=== PATIENT | male | born 1965 | race Caucasian/White ===

== ENCOUNTER 2022-02-22 13:49 | Inpatient (IN) | payer SELFPAY ==
[~2022-02-22 13:49] MED LIST: Iopamidol 370 76% 100 ML VIAL ONE
[2022-02-22] MEDS ORDERED: Pantoprazole 40 MG VIAL ONE ×3 (14:32→20:05)
[2022-02-22 14:43] LABS: #Basophils 0.1 10x3/uL (0.0-0.2); #Monocytes 1.3 10x3/uL (0.0-1.1); #Neutrophils 7.6 10x3/uL (1.5-8.4); %Basophils 1.3 % (0.0-2.0); %Eosinophils 0.3 % (0.0-6.0); %Lymphocytes 12.7 % (18.0-47.0); %Monocytes 12.7 % (0.0-10.0); %Neutrophils 72.3 % (40.0-75.0); Hemoglobin 6.4 g/dL (13.5-17.5); Mean Corpuscular HGB CONC 34.2 g/dL (32.0-36.0); Mean Corpuscular Hemoglobin 36.8 pg (27.0-33.0); Mean Corpuscular Volume 107.5 fl (81.2-95.1); Mean Platelet Volume 10.8 fl (7.4-10.4); Platelet Count 186 10x3/uL (150-450); RBC Distribution Width 12.3 % (11.5-14.5); Red Blood Cell (RBC) Count 1.74 10x6/uL (4.32-5.72); White Blood Cell (WBC) Count 10.5 10x3/uL (3.5-10.5)
[2022-02-22 14:47] LABS: INR-International Normal Ratio 1.4; Prothrombin Time 14.8 sec (9.5-12.1)
[2022-02-22 14:51] LABS: ALT (SGPT) 18 U/L (8-55); AST (SGOT) 37 U/L (5-34); Albumin 2.7 g/dL (3.5-5.0); Alkaline Phosphatase 81 U/L (40-110); Anion Gap 13 mmol/L (10-20); BUN (Urea Nitrogen) 59 mg/dL (8.4-25.7); Calc. Creatinine Clearance 0 mL/min (70-130); Calcium 7.9 mg/dL (7.8-10.44); Carbon Dioxide 21 mmol/L (22-29); Chloride 108 mmol/L (98-107); Estimated GFR 94; Globulin 2.8 g/dL (2.4-3.5); Glucose 163 mg/dL (70-105); Potassium 3.9 mmol/L (3.5-5.1); Protein, Total 5.5 g/dL (6.0-8.3); Sodium 138 mmol/L (136-145)
[2022-02-22 15:15] LABS: CKMB 2.3 ng/mL (0-6.6)
[2022-02-22 16:44] LABS: Macrocytosis SLIGHT = 6-15 cells (100X) (0-5/hpf)
[2022-02-22 16:45] LABS: Platelet Morphology Comment Appears Adequate
[2022-02-22] MEDS ORDERED: Ondansetron PF 4 MG/2 ML Vial ONE (18:51)
[2022-02-22] MEDS ORDERED: Ondansetron PF 4 MG/2 ML Vial IVP PRN (19:15)
[2022-02-22] MEDS ORDERED: Promethazine HCl 12.5 MG, Admixture Fee 1 EACH in Sodium Chloride 0.9% 50 ML IVPB PRN (19:19)
[2022-02-22] MEDS ORDERED: Octreotide Acetate 100 MCG/ML VIAL ONE (19:25)
[2022-02-22] MEDS ORDERED: cefTRIAXone\\ROCEPHIN 1 GM VIAL ONE (19:48)
[2022-02-22] MEDS ORDERED: PROPOFOL 20 ML ONE (20:28)
[2022-02-22] MEDS ORDERED: Succinylcholine 200 MG/10 ml SYRINGE FS ONE (20:28)
[2022-02-22] MEDS ORDERED: Fentanyl 100 MCG/2 ML VIAL ONE (20:29)
[2022-02-22] MEDS ORDERED: Octreotide Acetate 1,250 MCG in Sodium Chloride 0.9% 250 ML 250 ML IVPB SCH (20:30)
[2022-02-22] MEDS ORDERED: PHENYLEPHRINE-NS 100 MCG/ML 10 ML SYRINGE ONE (20:32)
[2022-02-22 20:47] LABS: SARS-CoV-2 NAA Rapid Test Not Detected (NotDetected)
[2022-02-22 22:26] LABS: #Basophils 0.1 10x3/uL (0.0-0.2); #Monocytes 1.1 10x3/uL (0.0-1.1); #Neutrophils 7.8 10x3/uL (1.5-8.4); %Basophils 0.9 % (0.0-2.0); %Eosinophils 0.2 % (0.0-6.0); %Lymphocytes 10.9 % (18.0-47.0); %Monocytes 10.6 % (0.0-10.0); %Neutrophils 76.7 % (40.0-75.0); Hemoglobin 6.7 g/dL (13.5-17.5); Mean Corpuscular Hemoglobin 34.2 pg (27.0-33.0); Mean Corpuscular Volume 103.6 fl (81.2-95.1); Mean Platelet Volume 10.8 fl (7.4-10.4); Platelet Count 126 10x3/uL (150-450); RBC Distribution Width 16.6 % (11.5-14.5); Red Blood Cell (RBC) Count 1.96 10x6/uL (4.32-5.72); White Blood Cell (WBC) Count 10.1 10x3/uL (3.5-10.5)
[2022-02-22 23:02] LABS: CKMB 2.7 ng/mL (0-6.6)
[2022-02-22 23:03] VITALS: BMI 27.0
[2022-02-22] MEDS: metroNIDAZOLE 500 MG in Premix Bag 1 BAG IVPB SCH (23:31)
[2022-02-22] MEDS: Thiamine HCl 200 MG/2 ML VIAL SLOW IVP SCH (23:31)
[2022-02-22] MEDS: Sodium Chloride 0.9% 1,000 ML IV SCH (23:32)
[2022-02-23] MEDS: Octreotide Acetate 1,250 MCG in Sodium Chloride 0.9% 250 ML 250 ML IVPB SCH
[2022-02-23] MEDS ORDERED: FLU VACC QS2022-23(6MOS UP)/PF 60 MCG/0.5 ML SYRINGE IM ONE (01:15)
[2022-02-23 04:52] LABS: #Basophils 0.1 10x3/uL (0.0-0.2); #Eosinphils 0.1 10x3/uL (0.0-0.5); #Monocytes 1.5 10x3/uL (0.0-1.1); #Neutrophils 8.3 10x3/uL (1.5-8.4); %Eosinophils 0.5 % (0.0-6.0); %Lymphocytes 12.3 % (18.0-47.0); %Monocytes 12.9 % (0.0-10.0); %Neutrophils 72.5 % (40.0-75.0); Mean Corpuscular HGB CONC 33.5 g/dL (32.0-36.0); Mean Corpuscular Hemoglobin 34.1 pg (27.0-33.0); Mean Platelet Volume 11.1 fl (7.4-10.4); Platelet Count 107 10x3/uL (150-450); RBC Distribution Width 17.4 % (11.5-14.5); Red Blood Cell (RBC) Count 2.05 10x6/uL (4.32-5.72); White Blood Cell (WBC) Count 11.4 10x3/uL (3.5-10.5)
[2022-02-23] MEDS: Pantoprazole 80 MG, Admixture Fee 1 EACH in Sodium Chloride 0.9% 100 ML IVPB SCH ×2 (04:55→15:48)
[2022-02-23 05:00] LABS: ALT (SGPT) 14 U/L (8-55); AST (SGOT) 33 U/L (5-34); Albumin 2.4 g/dL (3.5-5.0); Alkaline Phosphatase 56 U/L (40-110); Anion Gap 11 mmol/L (10-20); BUN (Urea Nitrogen) 52 mg/dL (8.4-25.7); Bilirubin, Total 1.3 mg/dL (0.2-1.2); Calc. Creatinine Clearance 91 mL/min (70-130); Carbon Dioxide 18 mmol/L (22-29); Chloride 115 mmol/L (98-107); Estimated GFR 92; Globulin 2.3 g/dL (2.4-3.5); Glucose 142 mg/dL (70-105); Potassium 3.9 mmol/L (3.5-5.1); Protein, Total 4.7 g/dL (6.0-8.3); Sodium 140 mmol/L (136-145)
[2022-02-23 06:03] LABS: Hep B Surf Ag NonReactive S/CO (NonReactive)
[2022-02-23 06:06] LABS: CKMB 3.9 ng/mL (0-6.6)
[2022-02-23] MEDS: metroNIDAZOLE 500 MG in Premix Bag 1 BAG IVPB SCH ×2 (08:06→14:57)
[2022-02-23 09:58] LABS: #Basophils 0.1 10x3/uL (0.0-0.2); #Eosinphils 0.1 10x3/uL (0.0-0.5); #Monocytes 1.1 10x3/uL (0.0-1.1); #Neutrophils 6.7 10x3/uL (1.5-8.4); %Basophils 1.1 % (0.0-2.0); %Eosinophils 1.1 % (0.0-6.0); %Lymphocytes 14.6 % (18.0-47.0); %Monocytes 11.8 % (0.0-10.0); Hemoglobin 6.3 g/dL (13.5-17.5); Mean Corpuscular HGB CONC 33.2 g/dL (32.0-36.0); Mean Corpuscular Hemoglobin 33.7 pg (27.0-33.0); Mean Corpuscular Volume 101.6 fl (81.2-95.1); Mean Platelet Volume 10.7 fl (7.4-10.4); Platelet Count 117 10x3/uL (150-450); Red Blood Cell (RBC) Count 1.87 10x6/uL (4.32-5.72); White Blood Cell (WBC) Count 9.4 10x3/uL (3.5-10.5)
[2022-02-23] MEDS: Sodium Chloride 0.9% 1,000 ML IV SCH ×2 (13:01→22:56)
[2022-02-23 15:05] LABS: HBCM Index 0.08 S/CO (0-0.79); Hep A IgM AB Non-Reactive (NonReactive); Hep A IgM S/CO 0.21 S/CO (0-0.79); Hep C IgG Ab Non-Reactive (NonReactive); Hep C Index 0.33 S/CO (0-0.79); Hepatitis B Core IgM Abs Non-Reactive (NonReactive)
[2022-02-23 15:23] LABS: #Basophils 0.1 10x3/uL (0.0-0.2); #Eosinphils 0.2 10x3/uL (0.0-0.5); #Monocytes 1.1 10x3/uL (0.0-1.1); #Neutrophils 5.6 10x3/uL (1.5-8.4); %Basophils 1.5 % (0.0-2.0); %Eosinophils 2.2 % (0.0-6.0); %Monocytes 13.5 % (0.0-10.0); %Neutrophils 67.4 % (40.0-75.0); Mean Corpuscular HGB CONC 33.8 g/dL (32.0-36.0); Mean Corpuscular Hemoglobin 33.1 pg (27.0-33.0); Mean Corpuscular Volume 97.9 fl (81.2-95.1); Mean Platelet Volume 10.7 fl (7.4-10.4); Platelet Count 105 10x3/uL (150-450); RBC Distribution Width 18.2 % (11.5-14.5); Red Blood Cell (RBC) Count 2.42 10x6/uL (4.32-5.72); White Blood Cell (WBC) Count 8.2 10x3/uL (3.5-10.5)
[2022-02-23 19:33] LABS: Campy jejuni + coli by PCR Negative (Negative); STEC Shiga Toxin 1+2 Negative (Negative); Salmonella spp. by PCR Negative (Negative); Shigella spp + EIEC by PCR Negative (Negative)
[2022-02-23] MEDS: cefTRIAXone\\ROCEPHIN 1 GM in Sodium Chloride 0.9% 100 ML IVPB SCH (22:05)
[2022-02-23 22:14] LABS: Platelet Count 96 10x3/uL (150-450)
[2022-02-23 22:15] LABS: #Basophils 0.1 10x3/uL (0.0-0.2); #Eosinphils 0.2 10x3/uL (0.0-0.5); #Monocytes 0.9 10x3/uL (0.0-1.1); #Neutrophils 4.3 10x3/uL (1.5-8.4); %Basophils 1.3 % (0.0-2.0); %Eosinophils 2.6 % (0.0-6.0); %Lymphocytes 19.7 % (18.0-47.0); %Monocytes 13.5 % (0.0-10.0); %Neutrophils 62.5 % (40.0-75.0); Hemoglobin 7.8 g/dL (13.5-17.5); Mean Corpuscular HGB CONC 34.5 g/dL (32.0-36.0); Mean Corpuscular Hemoglobin 32.9 pg (27.0-33.0); Mean Corpuscular Volume 95.4 fl (81.2-95.1); Mean Platelet Volume 10.2 fl (7.4-10.4); RBC Distribution Width 18.9 % (11.5-14.5); Red Blood Cell (RBC) Count 2.37 10x6/uL (4.32-5.72); White Blood Cell (WBC) Count 6.9 10x3/uL (3.5-10.5)
[2022-02-24] MEDS: metroNIDAZOLE 500 MG in Premix Bag 1 BAG IVPB SCH ×3 (00:14→16:07)
[2022-02-24] MEDS: Thiamine HCl 200 MG/2 ML VIAL SLOW IVP SCH (00:15)
[2022-02-24] MEDS ORDERED: Zolpidem Tartrate 5 MG TAB PO PRN (00:42)
[2022-02-24] MEDS: Pantoprazole 80 MG, Admixture Fee 1 EACH in Sodium Chloride 0.9% 100 ML IVPB SCH (04:17)
[2022-02-24] MEDS: Octreotide Acetate 1,250 MCG in Sodium Chloride 0.9% 250 ML 250 ML IVPB SCH (04:17)
[2022-02-24 05:25] LABS: #Basophils 0.1 10x3/uL (0.0-0.2); #Eosinphils 0.2 10x3/uL (0.0-0.5); #Monocytes 0.7 10x3/uL (0.0-1.1); #Neutrophils 3.3 10x3/uL (1.5-8.4); %Basophils 1.5 % (0.0-2.0); %Eosinophils 3.9 % (0.0-6.0); %Lymphocytes 19.4 % (18.0-47.0); %Monocytes 12.5 % (0.0-10.0); Hemoglobin 7.8 g/dL (13.5-17.5); Mean Corpuscular HGB CONC 34.5 g/dL (32.0-36.0); Mean Corpuscular Hemoglobin 33.6 pg (27.0-33.0); Mean Corpuscular Volume 97.4 fl (81.2-95.1); Mean Platelet Volume 10.5 fl (7.4-10.4); Platelet Count 85 10x3/uL (150-450); RBC Distribution Width 18.6 % (11.5-14.5); Red Blood Cell (RBC) Count 2.32 10x6/uL (4.32-5.72); White Blood Cell (WBC) Count 5.4 10x3/uL (3.5-10.5)
[2022-02-24 05:48] LABS: Iron 57 ug/dL (65-175); Iron Binding Capacity, Total 238 mcg/dL (261-462)
[2022-02-24] MEDS: Sodium Chloride 0.9% 1,000 ML IV SCH ×2 (06:47→09:34)
[2022-02-24 09:09] LABS: #Basophils 0.1 10x3/uL (0.0-0.2); #Eosinphils 0.2 10x3/uL (0.0-0.5); #Monocytes 0.8 10x3/uL (0.0-1.1); #Neutrophils 3.8 10x3/uL (1.5-8.4); %Basophils 1.5 % (0.0-2.0); %Eosinophils 3.2 % (0.0-6.0); %Lymphocytes 20.5 % (18.0-47.0); %Monocytes 13.4 % (0.0-10.0); %Neutrophils 60.8 % (40.0-75.0); Hemoglobin 8.3 g/dL (13.5-17.5); Mean Corpuscular HGB CONC 33.5 g/dL (32.0-36.0); Mean Corpuscular Hemoglobin 33.3 pg (27.0-33.0); Mean Corpuscular Volume 99.6 fl (81.2-95.1); Mean Platelet Volume 10.6 fl (7.4-10.4); Platelet Count 95 10x3/uL (150-450); RBC Distribution Width 18.4 % (11.5-14.5); Red Blood Cell (RBC) Count 2.49 10x6/uL (4.32-5.72); White Blood Cell (WBC) Count 6.2 10x3/uL (3.5-10.5)
[2022-02-24] MEDS: Nadolol 40 MG TAB PO SCH (09:36)
[2022-02-24] MEDS ORDERED: HYDROcodone/Acetaminophen 5/325 mg Tablet PO SCH (10:00)
[2022-02-24 11:40] LABS: Anion Gap 11 mmol/L (10-20); BUN (Urea Nitrogen) 23 mg/dL (8.4-25.7); Calc. Creatinine Clearance 101 mL/min (70-130); Calcium 7.2 mg/dL (7.8-10.44); Carbon Dioxide 17 mmol/L (22-29); Chloride 115 mmol/L (98-107); Estimated GFR 101; Glucose 150 mg/dL (70-105); Potassium 3.7 mmol/L (3.5-5.1); Sodium 139 mmol/L (136-145)
[2022-02-24] MEDS: HYDROcodone/Acetaminophen 5/325 mg Tablet PO PRN (16:04)
[2022-02-24] MEDS: cefTRIAXone\\ROCEPHIN 1 GM in Sodium Chloride 0.9% 100 ML IVPB SCH (20:50)
[2022-02-25] MEDS: metroNIDAZOLE 500 MG in Premix Bag 1 BAG IVPB SCH ×2 (00:17→08:56)
[2022-02-25] MEDS: Thiamine HCl 200 MG/2 ML VIAL SLOW IVP SCH (00:17)
[2022-02-25 05:12] LABS: #Basophils 0.1 10x3/uL (0.0-0.2); #Eosinphils 0.3 10x3/uL (0.0-0.5); #Monocytes 0.7 10x3/uL (0.0-1.1); #Neutrophils 3.9 10x3/uL (1.5-8.4); %Basophils 1.9 % (0.0-2.0); %Lymphocytes 19.6 % (18.0-47.0); %Monocytes 11.3 % (0.0-10.0); %Neutrophils 61.4 % (40.0-75.0); Hemoglobin 8.5 g/dL (13.5-17.5); Mean Platelet Volume 10.7 fl (7.4-10.4); Platelet Count 106 10x3/uL (150-450); RBC Distribution Width 17.3 % (11.5-14.5); White Blood Cell (WBC) Count 6.4 10x3/uL (3.5-10.5)
[2022-02-25 05:22] LABS: ALT (SGPT) 18 U/L (8-55); AST (SGOT) 43 U/L (5-34); Albumin 2.6 g/dL (3.5-5.0); Alkaline Phosphatase 78 U/L (40-110); Anion Gap 11 mmol/L (10-20); BUN (Urea Nitrogen) 17 mg/dL (8.4-25.7); Bilirubin, Total 0.7 mg/dL (0.2-1.2); Calc. Creatinine Clearance 112 mL/min (70-130); Calcium 7.4 mg/dL (7.8-10.44); Carbon Dioxide 19 mmol/L (22-29); Chloride 113 mmol/L (98-107); Estimated GFR 104; Globulin 2.9 g/dL (2.4-3.5); Glucose 119 mg/dL (70-105); Potassium 3.8 mmol/L (3.5-5.1); Protein, Total 5.5 g/dL (6.0-8.3); Sodium 139 mmol/L (136-145)
[2022-02-25 07:06] VITALS: TEMP 98.4
[2022-02-25] MEDS: HYDROcodone/Acetaminophen 5/325 mg Tablet PO PRN (08:58)
[2022-02-25] MEDS: Nadolol 40 MG TAB PO SCH ×2 (09:08→09:09)
[2022-02-25 11:54] VITALS: BP 146/86
[2022-02-27 12:37] LABS: ANA Symphony (Qualitative) Equivocal: See Note (Negative); ANA Symphony (Quantitative) 0.7 Ratio (< 0.7 Negative); EliA Vaculitis New Method **** NEW METHOD ****; Mitochondrial Ab 1.1 U/mL (<4 Negative); dsDNA IgG Antibody 1.6 IU/mL (<10 Negative)
== END 2022-02-25 12:53 | disposition home or self-care (01) | DRG 377 ==
LOC: CSHERS 13:49 → CSHICU 22:56 → CSHTELE 02-23 20:59
PROVIDERS: ADMIT Student in an Organized Health Care Education/Training Program; ATTEND Family Medicine
PROC: 30233N1 Transfusion of Nonautologous Red Blood Cells into Peripheral Vein, Percutaneous Approach (ICD-10-PCS; principal; 2022-02-22)
PROC: 0DJ08ZZ Inspection of Upper Intestinal Tract, Via Natural or Artificial Opening Endoscopic (ICD-10-PCS; 2022-02-23)
DX: K29.21 Alcoholic gastritis with bleeding (principal); I21.A1 Myocardial infarction type 2; D62 Acute posthemorrhagic anemia; K76.6 Portal hypertension; K70.30 Alcoholic cirrhosis of liver without ascites; Z20.822 Contact with and (suspected) exposure to COVID-19; K52.9 Noninfective gastroenteritis and colitis, unspecified; E86.1 Hypovolemia; F10.20 Alcohol dependence, uncomplicated; R91.1 Solitary pulmonary nodule; K42.9 Umbilical hernia without obstruction or gangrene; K64.9 Unspecified hemorrhoids; E86.0 Dehydration; K31.89 Other diseases of stomach and duodenum; I85.10 Secondary esophageal varices without bleeding; Z71.41 Alcohol abuse counseling and surveillance of alcoholic
CPT/HCPCS: 36415; 36430; 71045; 74177; 80048; 80053; 80074; 82274; 82553; 82728; 83516; 83540; 83550; 83630; 84484; 85025; 85610; 85730; 86015; 86038; 86225; 86850; 86900; 86901; 87324; 87449; 87505; 93005; 93306; 96361; 96365; 96374; 96375; 99292; C9113; J0696; J2354; J2405; J2704; J3010; J3411; J3490; J7050; P9016; Q9967; U0002

== ENCOUNTER 2023-04-22 14:17 | Inpatient (IN) | payer OTHER ==
[2023-04-22 15:17] LABS: INR-International Normal Ratio 1.6; PTT 30.6 sec (22.0-33.0); Prothrombin Time 17.2 sec (9.5-12.1)
[2023-04-22 15:20] LABS: #Basophils 0.1 10x3/uL (0.0-0.2); #Monocytes 0.9 10x3/uL (0.0-1.1); #Neutrophils 3.5 10x3/uL (1.5-8.4); %Basophils 2.1 % (0.0-2.0); %Eosinophils 0.2 % (0.0-6.0); %Lymphocytes 13.3 % (18.0-47.0); %Monocytes 17.9 % (0.0-10.0); %Neutrophils 65.9 % (40.0-75.0); Hemoglobin 9.2 g/dL (13.5-17.5); Mean Corpuscular HGB CONC 35.4 g/dL (32.0-36.0); Mean Corpuscular Hemoglobin 37.1 pg (27.0-33.0); Mean Corpuscular Volume 104.8 fl (81.2-95.1); Mean Platelet Volume 11.4 fl (7.4-10.4); Platelet Count 44 10x3/uL (150-450); RBC Distribution Width 14.7 % (11.5-14.5); Red Blood Cell (RBC) Count 2.48 10x6/uL (4.32-5.72); White Blood Cell (WBC) Count 5.3 10x3/uL (3.5-10.5)
[2023-04-22 15:22] LABS: ALT (SGPT) 36 U/L (8-55); AST (SGOT) 117 U/L (5-34); Albumin 2.9 g/dL (3.5-5.0); Alkaline Phosphatase 108 U/L (40-110); Anion Gap 13 mmol/L (10-20); BUN (Urea Nitrogen) 16 mg/dL (8.4-25.7); Bilirubin, Total 4.7 mg/dL (0.2-1.2); Calc. Creatinine Clearance 0 mL/min (70-130); Calcium 8.5 mg/dL (7.8-10.44); Carbon Dioxide 20 mmol/L (22-29); Chloride 105 mmol/L (98-107); Estimated GFR 79; Globulin 5.2 g/dL (2.4-3.5); Glucose 114 mg/dL (70-105); Potassium 4.1 mmol/L (3.5-5.1); Protein, Total 8.1 g/dL (6.0-8.3); Sodium 134 mmol/L (136-145)
[2023-04-22 15:23] LABS: Acetaminophen Less than 10 mcg/mL (10.0-30.0); Alcohol Less than 10.0 mg/dL (Less than 10); Lipase 99 U/L (8-78); Salicylate Less than 8.0 mg/dL (15.0-30.0)
[2023-04-22] MEDS ORDERED: Pantoprazole 40 MG VIAL ONE (16:02)
[2023-04-22] MEDS ORDERED: Pantoprazole 80 MG, Admixture Fee 1 EACH in Sodium Chloride 0.9% 100 ML IVPB SCH (16:15)
[2023-04-22] MEDS ORDERED: Octreotide Acetate 1,250 MCG in Sodium Chloride 0.9% 250 ML 250 ML IVPB SCH ×2 (16:15→19:30)
[2023-04-22] MEDS ORDERED: Multivitamins, Adult 10 ML, Thiamine HCl 100 MG, Folic Acid 1 MG in Dextrose 5 %-0.45 %... IV SCH (16:15)
[2023-04-22] MEDS ORDERED: Lorazepam 2 MG/ML VIAL ONE (17:36)
[2023-04-22] MEDS ORDERED: Acetaminophen 325 MG TAB PO PRN (19:26)
[2023-04-22] MEDS ORDERED: Ondansetron PF 4 MG/2 ML Vial IVP PRN (19:26)
[2023-04-22] MEDS ORDERED: Lorazepam 2 MG/ML VIAL SLOW IVP PRN (19:29)
[2023-04-22] MEDS ORDERED: Pantoprazole 80 MG in Sodium Chloride 0.9% 100 ML IVPB SCH (19:30)
[2023-04-22] MEDS ORDERED: Dextrose 5 %-0.45 % NaCl 1,000 ML IV SCH (19:30)
[2023-04-22 19:57] VITALS: BMI 24.3
[2023-04-22] MEDS ORDERED: FLU VACC QS2023-24(6MOS UP)/PF 60 MCG/0.5 ML SYRINGE IM ONE (20:45)
[2023-04-22 23:02] LABS: Hematocrit 20.8 % (38.8-50.0); Hemoglobin 7.3 g/dL (13.5-17.5); Mean Corpuscular HGB CONC 35.1 g/dL (32.0-36.0); Mean Corpuscular Hemoglobin 37.1 pg (27.0-33.0); Mean Corpuscular Volume 105.6 fl (81.2-95.1); Mean Platelet Volume 10.7 fl (7.4-10.4); Platelet Count 45 10x3/uL (150-450); RBC Distribution Width 14.8 % (11.5-14.5); Red Blood Cell (RBC) Count 1.97 10x6/uL (4.32-5.72); White Blood Cell (WBC) Count 3.5 10x3/uL (3.5-10.5)
[2023-04-22] MEDS: cefTRIAXone\\ROCEPHIN 1 GM in Sodium Chloride 0.9% 100 ML IVPB SCH (23:12)
[2023-04-22 23:21] LABS: MDiff Complete? YES
[2023-04-23 00:05] LABS: Eosinophils 3 % (0-10); Lymphocytes 20 % (21-51); Monocytes 15 % (0-10); Neutrophil 59 % (42-75)
[2023-04-23 00:10] LABS: Macrocytosis SLIGHT = 6-15 cells (100X) (0-5/hpf); Platelet Adequacy Comment Appears Decreased; Polychromasia SLIGHT = 2-3 cells (100X) (0-2/hpf)
[2023-04-23] MEDS: Lorazepam 2 MG/ML VIAL SLOW IVP PRN (02:15)
[2023-04-23] MEDS ORDERED: Metoprolol Tartrate 5 MG (5 mL) VIAL IVP SCH (04:30)
[2023-04-23 04:32] LABS: Hemoglobin 8.8 g/dL (13.5-17.5); Mean Corpuscular HGB CONC 35.2 g/dL (32.0-36.0); Mean Corpuscular Hemoglobin 36.4 pg (27.0-33.0); Mean Corpuscular Volume 103.3 fl (81.2-95.1); Mean Platelet Volume 10.9 fl (7.4-10.4); Platelet Count 50 10x3/uL (150-450); RBC Distribution Width 16.5 % (11.5-14.5); Red Blood Cell (RBC) Count 2.42 10x6/uL (4.32-5.72); White Blood Cell (WBC) Count 3.6 10x3/uL (3.5-10.5)
[2023-04-23 04:43] LABS: ALT (SGPT) 28 U/L (8-55); AST (SGOT) 89 U/L (5-34); Albumin 2.4 g/dL (3.5-5.0); Alkaline Phosphatase 79 U/L (40-110); Anion Gap 11 mmol/L (10-20); BUN (Urea Nitrogen) 20 mg/dL (8.4-25.7); Bilirubin, Total 3.9 mg/dL (0.2-1.2); Calc. Creatinine Clearance 67 mL/min (70-130); Calcium 7.6 mg/dL (7.8-10.44); Carbon Dioxide 19 mmol/L (22-29); Chloride 108 mmol/L (98-107); Estimated GFR 67; Globulin 4.2 g/dL (2.4-3.5); Glucose 138 mg/dL (70-105); Lipase 42 U/L (8-78); Magnesium 1.6 mg/dL (1.6-2.6); Potassium 3.9 mmol/L (3.5-5.1); Protein, Total 6.6 g/dL (6.0-8.3); Sodium 134 mmol/L (136-145)
[2023-04-23] MEDS ORDERED: Magnesium Sulfate/D5W 1 GM in Premix 1 BAG IVPB SCH (05:00)
[2023-04-23] MEDS ORDERED: Magnesium Sulfate/D5W 1 GM/100 ML BAG IVPB SCH (05:00)
[2023-04-23 06:04] LABS: MDiff Complete? YES; Macrocytosis SLIGHT = 6-15 cells (100X) (0-5/hpf)
[2023-04-23 06:05] LABS: Platelet Adequacy Comment Appears Decreased
[2023-04-23 06:06] LABS: Eosinophils 2 % (0-10); Lymphocytes 26 % (21-51); Monocytes 20 % (0-10); Neutrophil 50 % (42-75)
[2023-04-23] MEDS: Dextrose 5 %-0.45 % NaCl 1,000 ML IV SCH ×2 (08:13→16:19)
[2023-04-23] MEDS: Lorazepam 2 MG/ML VIAL SLOW IVP SCH ×4 (08:19→23:44)
[2023-04-23 08:28] LABS: Hematocrit 26.7 % (38.8-50.0); Hemoglobin 9.5 g/dL (13.5-17.5); Mean Corpuscular HGB CONC 35.6 g/dL (32.0-36.0); Mean Corpuscular Hemoglobin 36.4 pg (27.0-33.0); Mean Corpuscular Volume 102.3 fl (81.2-95.1); Mean Platelet Volume 11.2 fl (7.4-10.4); RBC Distribution Width 16.7 % (11.5-14.5); Red Blood Cell (RBC) Count 2.61 10x6/uL (4.32-5.72); White Blood Cell (WBC) Count 3.9 10x3/uL (3.5-10.5)
[2023-04-23 08:49] LABS: Platelet Count 52 10x3/uL (150-450)
[2023-04-23 08:51] LABS: Macrocytosis SLIGHT = 6-15 cells (100X) (0-5/hpf); Platelet Adequacy Comment Appears Decreased
[2023-04-23 08:56] LABS: Eosinophils 4 % (0-10); Lymphocytes 16 % (21-51); Monocytes 22 % (0-10)
[2023-04-23 08:57] LABS: Neutrophil 56 % (42-75)
[2023-04-23 08:59] LABS: MDiff Complete? YES
[2023-04-23] MEDS: Nadolol 40 MG TAB PO SCH (08:59)
[2023-04-23] MEDS: Thiamine HCl 200 MG/2 ML VIAL SLOW IVP SCH (13:37)
[2023-04-23 15:28] LABS: Hematocrit 28.6 % (38.8-50.0); Hemoglobin 10.2 g/dL (13.5-17.5); Mean Corpuscular HGB CONC 35.7 g/dL (32.0-36.0); Mean Corpuscular Hemoglobin 36.3 pg (27.0-33.0); Mean Corpuscular Volume 101.8 fl (81.2-95.1); Mean Platelet Volume 11.1 fl (7.4-10.4); Platelet Count 64 10x3/uL (150-450); RBC Distribution Width 16.5 % (11.5-14.5); Red Blood Cell (RBC) Count 2.81 10x6/uL (4.32-5.72); White Blood Cell (WBC) Count 4.6 10x3/uL (3.5-10.5)
[2023-04-23] MEDS ORDERED: GoLYTELY 4,000 ml Bottle PO SCH (16:00)
[2023-04-23 16:46] LABS: MDiff Complete? YES
[2023-04-23 17:14] LABS: Eosinophils 2 % (0-10); Lymphocytes 20 % (21-51); Metamyelocyte 1 % (0-0); Monocytes 10 % (0-10); Neutrophil 67 % (42-75)
[2023-04-23 17:15] LABS: Macrocytosis SLIGHT = 6-15 cells (100X) (0-5/hpf); Polychromasia SLIGHT = 2-3 cells (100X) (0-2/hpf)
[2023-04-23 17:16] LABS: Platelet Adequacy Comment Platelets Decreased
[2023-04-23] MEDS: Multivitamins, Adult 10 ML, Folic Acid 1 MG, Thiamine HCl 100 MG, Admixture Fee 1 EACH ... IV SCH (17:23)
[2023-04-23] MEDS: cefTRIAXone\\ROCEPHIN 1 GM in Sodium Chloride 0.9% 100 ML IVPB SCH (21:52)
[2023-04-24] MEDS: Dextrose 5 %-0.45 % NaCl 1,000 ML IV SCH ×2 (02:42→19:42)
[2023-04-24] MEDS: Multivitamins, Adult 10 ML, Folic Acid 1 MG, Thiamine HCl 100 MG, Admixture Fee 1 EACH ... IV SCH (02:43)
[2023-04-24 04:16] LABS: Hematocrit 26.7 % (38.8-50.0); Hemoglobin 9.3 g/dL (13.5-17.5); MDiff Complete? YES; Mean Corpuscular HGB CONC 34.8 g/dL (32.0-36.0); Mean Corpuscular Hemoglobin 35.9 pg (27.0-33.0); Mean Corpuscular Volume 103.1 fl (81.2-95.1); Mean Platelet Volume 11.6 fl (7.4-10.4); Platelet Count 65 10x3/uL (150-450); RBC Distribution Width 16.2 % (11.5-14.5); Red Blood Cell (RBC) Count 2.59 10x6/uL (4.32-5.72); White Blood Cell (WBC) Count 5.1 10x3/uL (3.5-10.5)
[2023-04-24 04:31] LABS: ALT (SGPT) 25 U/L (8-55); AST (SGOT) 73 U/L (5-34); Albumin 2.3 g/dL (3.5-5.0); Alkaline Phosphatase 66 U/L (40-110); Anion Gap 12 mmol/L (10-20); BUN (Urea Nitrogen) 16 mg/dL (8.4-25.7); Bilirubin, Direct 1.5 mg/dL (0.1-0.3); Bilirubin, Total 3.1 mg/dL (0.2-1.2); Calc. Creatinine Clearance 67 mL/min (70-130); Carbon Dioxide 18 mmol/L (22-29); Chloride 108 mmol/L (98-107); Estimated GFR 67; Glucose 137 mg/dL (70-105); Potassium 3.6 mmol/L (3.5-5.1); Protein, Total 6.4 g/dL (6.0-8.3); Sodium 134 mmol/L (136-145)
[2023-04-24 05:06] LABS: Band 4 % (5-11); Eosinophils 3 % (0-10); Lymphocytes 22 % (21-51); Monocytes 19 % (0-10); Neutrophil 52 % (42-75)
[2023-04-24 05:18] LABS: Macrocytosis SLIGHT = 6-15 cells (100X) (0-5/hpf); Platelet Adequacy Comment Appears Decreased; Polychromasia SLIGHT = 2-3 cells (100X) (0-2/hpf)
[2023-04-24] MEDS: Lorazepam 2 MG/ML VIAL SLOW IVP SCH (07:15)
[2023-04-24] MEDS: Lorazepam 2 MG/ML VIAL SLOW IVP PRN (08:24)
[2023-04-24] MEDS: Nadolol 40 MG TAB PO SCH (10:44)
[2023-04-24] MEDS ORDERED: PROPOFOL 40 ML ONE (14:16)
[2023-04-24] MEDS ORDERED: Lidocaine 1% PF 5 ML VIAL ONE (14:16)
[2023-04-24] MEDS ORDERED: PHENYLEPHRINE-NS 100 MCG/ML 10 ML SYRINGE ONE (14:38)
[2023-04-24] MEDS ORDERED: Simethicone 40 MG/0.6 ML Drop 30 ML BOT ONE (14:45)
[2023-04-24] MEDS: Thiamine HCl 200 MG/2 ML VIAL SLOW IVP SCH (19:42)
[2023-04-25] MEDS: Lorazepam 2 MG/ML VIAL SLOW IVP PRN (05:23)
[2023-04-25 08:45] LABS: Anion Gap 10 mmol/L (10-20); BUN (Urea Nitrogen) 14 mg/dL (8.4-25.7); Calc. Creatinine Clearance 82 mL/min (70-130); Calcium 7.1 mg/dL (7.8-10.44); Carbon Dioxide 18 mmol/L (22-29); Chloride 109 mmol/L (98-107); Estimated GFR 86; Glucose 111 mg/dL (70-105); Potassium 3.4 mmol/L (3.5-5.1); Sodium 134 mmol/L (136-145)
[2023-04-25] MEDS ORDERED: Multivitamin W/ Minerals 1 TAB PO SCH (09:00)
[2023-04-25] MEDS ORDERED: Thiamine 100 MG TAB PO SCH (09:00)
[2023-04-25] MEDS ORDERED: Nadolol 40 MG TAB PO SCH (09:00)
[2023-04-25] MEDS ORDERED: Folic Acid 1 MG TAB PO SCH (09:00)
[2023-04-25 09:14] LABS: Hematocrit 24.2 % (38.8-50.0); Hemoglobin 8.4 g/dL (13.5-17.5); MDiff Complete? YES; Mean Corpuscular HGB CONC 34.7 g/dL (32.0-36.0); Mean Corpuscular Hemoglobin 37.2 pg (27.0-33.0); Mean Corpuscular Volume 107.1 fl (81.2-95.1); Platelet Adequacy Comment Appears Decreased; Platelet Count 52 10x3/uL (150-450); RBC Distribution Width 15.9 % (11.5-14.5); Red Blood Cell (RBC) Count 2.26 10x6/uL (4.32-5.72); White Blood Cell (WBC) Count 4.3 10x3/uL (3.5-10.5)
[2023-04-25 09:18] LABS: Eosinophils 2 % (0-10); Lymphocytes 21 % (21-51); Monocytes 24 % (0-10); Neutrophil 51 % (42-75); Reactive Lymphocytes 1 % (0-10)
[2023-04-25 09:20] LABS: Macrocytosis SLIGHT = 6-15 cells (100X) (0-5/hpf)
[2023-04-25] MEDS ORDERED: Methyl Salicylate/Menthol 85 GM TUBE TOP PRN (10:12)
[2023-04-25] MEDS ORDERED: traMADol HCl 50 MG TAB PO PRN (10:13)
[2023-04-25 13:19] VITALS: BP 155/80; TEMP 98.2
== END 2023-04-25 14:15 | disposition home or self-care (01) | DRG 378 ==
LOC: CSHERS 14:17 → CSHTELE 17:06
PROVIDERS: ADMIT Internal Medicine; ATTEND Internal Medicine
PROC: 0DJ08ZZ Inspection of Upper Intestinal Tract, Via Natural or Artificial Opening Endoscopic (ICD-10-PCS; principal; 2023-04-24)
PROC: 0DBN8ZZ Excision of Sigmoid Colon, Via Natural or Artificial Opening Endoscopic (ICD-10-PCS; 2023-04-24)
DX: K92.2 Gastrointestinal hemorrhage, unspecified (principal); D62 Acute posthemorrhagic anemia; D68.9 Coagulation defect, unspecified; K76.6 Portal hypertension; K64.8 Other hemorrhoids; K70.30 Alcoholic cirrhosis of liver without ascites; D69.6 Thrombocytopenia, unspecified; I10 Essential (primary) hypertension; Z79.899 Other long term (current) drug therapy; F10.20 Alcohol dependence, uncomplicated; K63.5 Polyp of colon; K31.89 Other diseases of stomach and duodenum
CPT/HCPCS: 36415; 36430; 71045; 76705; 80048; 80053; 80076; 80307; 82105; 82140; 82274; 83690; 83735; 85025; 85610; 85730; 86850; 86900; 86901; 88305; 93005; 93010; 96374; 96375; 96376; C9113; J0696; J2060; J2354; J2405; J2704; J3411; J3475; J3490; J7042; J7050; P9016; P9035

== ENCOUNTER 2023-09-19 21:10 | Emergency (ER) | payer OTHER ==
[2023-09-19] MEDS ORDERED: Pantoprazole 40 MG VIAL ONE (21:29)
[2023-09-19] MEDS ORDERED: Octreotide Acetate 100 MCG/ML VIAL ONE (21:40)
[2023-09-19 21:59] LABS: INR-International Normal Ratio 1.9
[2023-09-19] MEDS ORDERED: Octreotide Acetate 1,250 MCG in Sodium Chloride 0.9% 250 ML 250 ML IVPB SCH (22:00)
[2023-09-19 22:03] LABS: ALT (SGPT) 27 U/L (8-55); AST (SGOT) 101 U/L (5-34); Albumin 1.7 g/dL (3.5-5.0); Alkaline Phosphatase 96 U/L (40-110); Anion Gap 11 mmol/L (10-20); BUN (Urea Nitrogen) 14 mg/dL (8.4-25.7); Bilirubin, Total 4.7 mg/dL (0.2-1.2); Calc. Creatinine Clearance 0 mL/min (70-130); Calcium 7.2 mg/dL (7.8-10.44); Carbon Dioxide 21 mmol/L (22-29); Chloride 105 mmol/L (98-107); Estimated GFR 88; Globulin 5.7 g/dL (2.4-3.5); Glucose 129 mg/dL (70-105); Protein, Total 7.4 g/dL (6.0-8.3); Sodium 133 mmol/L (136-145)
[2023-09-19 22:07] LABS: Hematocrit 24.3 % (38.8-50.0); Hemoglobin 7.9 g/dL (13.5-17.5); Mean Corpuscular HGB CONC 32.5 g/dL (32.0-36.0); Mean Corpuscular Hemoglobin 37.4 pg (27.0-33.0); Mean Corpuscular Volume 115.2 fL (81.2-95.1); Platelet Count 61 10x3/uL (150-450); RBC Distribution Width 15.6 % (11.5-14.5); Red Blood Cell (RBC) Count 2.11 10x6/uL (4.32-5.72); White Blood Cell (WBC) Count 6.2 10x3/uL (3.5-10.5)
[2023-09-19 22:12] LABS: MDiff Complete? YES
[2023-09-19 22:48] LABS: Lymphocytes 12 % (21-51); Monocytes 15 % (0-10); Neutrophil 73 % (42-75)
[2023-09-19 22:57] LABS: Macrocytosis SLIGHT = 6-15 cells (100X) (0-5/hpf); Platelet Adequacy Comment Appears Decreased; Polychromasia SLIGHT = 2-3 cells (100X) (0-2/hpf)
[2023-09-19] MEDS ORDERED: Phytonadione 10 MG/ML AMP ONE (23:20)
== END 2023-09-20 00:24 | disposition short-term general hospital (02) ==
LOC: CSHERS 21:10
DX: D64.9 Anemia, unspecified (principal); K70.30 Alcoholic cirrhosis of liver without ascites; I85.01 Esophageal varices with bleeding; I10 Essential (primary) hypertension; Z79.899 Other long term (current) drug therapy
CPT/HCPCS: 36430; 80053; 85025; 85610; 86850; 86900; 86901; 93005; C9113; J2354; J3430; J7050; P9059

== ENCOUNTER 2024-01-25 05:52 | Emergency (ER) | payer OTHER | END 2024-01-25 06:38 | disposition home or self-care (01) | LOC: CSHERS 05:52 | DX: R18.8 Other ascites (principal); I10 Essential (primary) hypertension | CPT/HCPCS: 99283 ==